=== PATIENT | male | born 1955 | race Caucasian/White ===

== ENCOUNTER → 2016-08-13 | Outpatient (CLI) | payer OTHER ==
--- NOTE | ~2016-08-13 | CT113 ---
[facility] A Service of [facility] & [facility] RADIOLOGY TEXT RESULTS PATIENT: TAYLOR HOLLINGSWORTH LOCATION: [facility] : 57 UNIT #: [id number] AGE: [address]: Cynthia Martinez MD SEX: M ORDER DR: [id number] [facility] [address] [place], [place] [address] [id number] O MR#: [id number] [facility] #: [id number] NAME: TAYLOR HOLLINGSWORTH : 1955 SEX: M STUDY DATE/TIME: 08/13/2016 13:09 UNIT: [facility] ROOM: STUDY DESCRIPTION: CT Sinuses Wo Contrast Attending Physician: Cynthia Martinez M.D. Referring Physician: Cynthia Martinez M.D. Ordering Physician: Cynthia Martinez M.D. Primary Care Physician: Cynthia Martinez M.D. MEDICAL IMAGING REPORT This report is preliminary unless electronic signature is present EXAM CT sinuses without contrast 08/13/2016 1309 hours HISTORY Right-sided facial swelling under right eye beginning 08/07/2016 with progression through 08/11/2016. Evaluate cyst versus abscess. COMPARISON Sinus film 08/09/2016. TECHNIQUE Axial noncontrasted images were obtained through the paranasal sinuses with sagittal and coronal reconstructions performed. No contrast was administered. Total exam DLP 209 mGy-cm. This CT examination was performed with one or more of the following radiation dose reduction techniques: automatic exposure control, adjustment of mA and/or kV according to patient size, and iterative reconstruction. FINDINGS The frontal sinuses are well-aerated and clear. The ethmoid sinuses demonstrate trace areas of mucosal thickening anteriorly and superiorly on the right. There is no opacification of the ethmoid air cells. The sphenoid sinuses are clear. There is mild mucosal thickening on the floor of the left maxillary sinus and moderate circumferential mucosal thickening in the right maxillary sinus. Both maxillary ostia are widely patent. There is no associated bony change or air-fluid level. There is leftward nasal septal deviation with a left-sided spur deforming the left inferior turbinate. There is angel bullosa of the right middle turbinate. There is suggested slight asymmetry and mild prominence of the soft tissues of the right face relative to the left inferior to the orbit and anterior to the anterior wall of the left maxillary sinus without discrete soft tissue abnormality [facility] A Service of [facility] & [facility] RADIOLOGY TEXT RESULTS PATIENT: TAYLOR HOLLINGSWORTH LOCATION: [facility] : 57 UNIT #: [id number] AGE: [address]: Cynthia Martinez MD SEX: M ORDER DR: seen in the subcutaneous soft tissues. There is a small focal areas of skin thickening medially on the right lateral to the nose on image 29 of doubtful clinical significance. IMPRESSION 1. There is right greater than left mucosal thickening in the maxillary sinuses on the floor of the left maxillary sinus and circumferentially in the right maxillary sinus with no air-fluid levels. 2. Bilateral maxillary ostia widely patent. 3. There is leftward nasal septal deviation with a left-sided spur deforming the left inferior turbinate with angel bullosa of the right middle turbinate. There is mild mucosal thickening along the turbinates but no nasal obstruction. 4. Question is raised of mild asymmetry in the soft tissues of the face, superficial to the right maxillary sinus, right greater than left but this could simply be due to positioning. There is no definite cyst or mass seen. There is a focal area of skin thickening medially on the right of doubtful clinical significance. STAT * RESULT Dictated by... Adri Caban M.D. THIS IS AN ELECTRONICALLY VERIFIED REPORT Adri Caban M.D. at 08/13/2016 2:35 PM MILDRED/aurelio TD: 08/13/2016 14:06 JOB #: [id number] MEDICAL IMAGING REPORT Page 1 of 1 COPY
== END | disposition home or self-care (01) ==
LOC: CCAT 12:30
DX: R22.0 Localized swelling, mass and lump, head (principal); J34.89 Other specified disorders of nose and nasal sinuses; J34.2 Deviated nasal septum
CPT/HCPCS: 70486